=== PATIENT | male | born 1975 | race Caucasian/White ===

== ENCOUNTER 2020-10-22 | Emergency (ER) | payer MEDICARE, MEDICAID ==
[~2020-10-22] VITALS: Ht 167.6 cm; Wt 63.6 kg
[~2020-10-22] MED LIST: MIRT30TA8 PO; OLAN10TA19 PO; OXCA300T16 PO
[2020-10-22] MEDS ORDERED: TETanus/Pertussis (Acell)/Diphther VAC/PF (Tdap-Adult) 0.5ml syringe IMVAC ONE (01:05)
[2020-10-22 01:39] VITALS: BP 120/62
== END 2020-10-22 01:43 | disposition home or self-care (01) ==
LOC: ER
DX: S90.31XA Contusion of right foot, initial encounter (principal); M79.671 Pain in right foot; G89.29 Other chronic pain; F20.9 Schizophrenia, unspecified; F15.90 Other stimulant use, unspecified, uncomplicated; F17.210 Nicotine dependence, cigarettes, uncomplicated; Z20.3 Contact with and (suspected) exposure to rabies; Z88.0 Allergy status to penicillin; Z88.8 Allergy status to other drugs, medicaments and biological substances; Z79.899 Other long term (current) drug therapy; W45.0XXA Nail entering through skin, initial encounter; Y93.89 Activity, other specified; Y92.89 Other specified places as the place of occurrence of the external cause; Y99.8 Other external cause status
CPT/HCPCS: 73650; 90471; 90715; 99283

== ENCOUNTER 2021-07-11 22:53 | Emergency (ER) | payer MEDICARE, MEDICAID ==
[~2021-07-11 22:53] MED LIST changes: +MIRT-88 PO; -MIRT30TA8 PO; -OLAN10TA19 PO; +OLAN10TA73 PO
== END 2021-07-11 23:40 | disposition left against medical advice (07) ==
LOC: ER 22:53
DX: U07.1 COVID-19 (principal); Z53.21 Procedure and treatment not carried out due to patient leaving prior to being seen by health care provider

== ENCOUNTER 2021-07-22 17:02 | Emergency (ER) | payer MEDICARE, MEDICAID | END 2021-07-22 18:20 | disposition left against medical advice (07) | LOC: ER 17:03 | DX: R45.851 Suicidal ideations (principal); Z53.21 Procedure and treatment not carried out due to patient leaving prior to being seen by health care provider ==

== ENCOUNTER 2021-07-22 18:26 | Emergency (ER) | payer MEDICARE, MEDICAID | END 2021-07-22 19:21 | disposition left against medical advice (07) | LOC: ER 18:27 | DX: R45.851 Suicidal ideations (principal); Z53.21 Procedure and treatment not carried out due to patient leaving prior to being seen by health care provider ==

== ENCOUNTER 2021-12-06 16:14 | Emergency (ER) | payer MEDICARE, MEDICAID | END 2021-12-06 18:48 | disposition left against medical advice (07) | LOC: ER 16:15 | DX: Z53.21 Procedure and treatment not carried out due to patient leaving prior to being seen by health care provider (principal) ==